=== PATIENT | male | born 1940 | race Caucasian/White ===

== ENCOUNTER → 2018-06-14 | Outpatient (CLI) | payer MEDICARE | END | disposition home or self-care (01) | LOC: PCVCCLINIC 15:05 | PROVIDERS: ATTEND Internal Medicine Cardiovascular Disease | DX: I48.91 Unspecified atrial fibrillation (principal); I11.0 Hypertensive heart disease with heart failure; I50.9 Heart failure, unspecified; E78.5 Hyperlipidemia, unspecified; J44.9 Chronic obstructive pulmonary disease, unspecified; G47.33 Obstructive sleep apnea (adult) (pediatric); I10 Essential (primary) hypertension; R60.9 Edema, unspecified; R06.02 Shortness of breath; Z79.899 Other long term (current) drug therapy | CPT/HCPCS: 36415; 80061; 93005; G0463 ==

== ENCOUNTER → 2018-06-20 | Outpatient (CLI) | payer MEDICARE ==
[~2018-06-20] MED LIST: REGADENOSON 0.4 MG/5 ML DISP.SYRIN. IV ONE
--- NOTE | 2018-06-21 10:36 | PCVCIMAG ---
APPROVED REPORT Study performed: 06/20/2018 07:57:24 EXAM: Comprehensive 2D, Doppler, and color-flow Echocardiogram Patient Location: Echo lab Status: routine BSA: 2.29 Rhythm: Atrial Fibrillation Other Information Study Quality: Adequate Risk Factors: Cardiac Risk Factors: HTN, Hyperlipidemia Indications Atrial Fibrillation Hypertension/HDD COPD, RYAN, Hyperlipidemia 2D Dimensions IVSd: 15.73 (7-11mm)LVOT Diam: 21.71 (18-24mm) LVDd: 46.51 mm PWd: 11.78 (7-11mm)Ascending Ao: 36.79 (22-36mm) LVDs: 32.06 (25-40mm) Left Atrium: 43.87 (27-40mm) Aortic Root: 30.64 mm LV Single Plane 4CH: 55.34 % LV Single Plane 2CH: 49.75 % Biplane EF: 50.4 % Volumes Left Atrial Volume (Systole) Single Plane 4CH: 101.69 mLSingle Plane 2CH: 89.52 mL LA ESV Index: 44.00 mL/m2 Aortic Valve AoV Peak Vadim.: 1.68 m/s AO Peak Gr.: 11.29 mmHgLVOT Max P.17 mmHg LVOT Max V: 0.87 m/s [place] Vmax: 1.91 cm2 AI Vmax: 3.59 m/s AI [place]: 1.83 m/s2 AI PHT: 577.93 ms Mitral Valve E/A Ratio: 1.0 MV E Max Vadim.: 1.08 m/s MV A Vadim.: 1.11 m/s Pulmonary Valve PV Peak Gr.: 2.21 mmHg Tricuspid Valve TR Peak Vadim.: 3.29 m/s TR Peak Gr.: 43.35 mmHg Left Ventricle The left ventricle is normal size. There is normal LV segmental wall motion. There is normal left ventricular wall thickness. Left ventricular systolic function is normal. The left ventricular ejection fraction is within the normal range. LVEF is 55-60%. This study is not technically sufficient to allow evaluation of the LV diastolic function due to atrial fibrillation. Right Ventricle The right ventricle is normal size. The right ventricular systolic function is normal. Atria Left atrium is moderately dilated. Right atrium is dilated. Aortic Valve The Aortic valve is sclerotic. Trace to mild aortic regurgitation. There is no aortic valvular stenosis. Mitral Valve The mitral valve is normal in structure. Mild mitral regurgitation. No evidence of mitral valve stenosis. Tricuspid Valve The tricuspid valve is normal in structure. Trace to mild tricuspid regurgitation. Pulmonary artery pressure is 51mmHg. Pulmonic Valve The pulmonary valve is normal in structure. There is no pulmonic valvular regurgitation. Great Vessels The aortic root is normal in size. IVC is normal in size and collapses >50% with inspiration. Pericardium There is no pericardial effusion. <Conclusion> The left ventricle is normal size. LVEF is 55-60%. This study is not technically sufficient to allow evaluation of the LV diastolic function due to atrial fibrillation. The right ventricle is normal size. Left atrium is moderately dilated. Right atrium is dilated. The Aortic valve is sclerotic. Trace to mild aortic regurgitation. Mild mitral regurgitation. Trace to mild tricuspid regurgitation. Pulmonary artery pressure is 51mmHg. There is no pericardial effusion.
--- NOTE | 2018-06-21 10:38 | PCVCIMAG ---
APPROVED REPORT Imaging Protocol: Rest Tc-99m/Stress Tc-99m 1 day Study performed: 06/20/2018 09:23:22 Indication: Atrial Fibrillation, Dyspnea, CHF Patient Location: Out-Patient Stress Nurse: Sherron Kimble RN, Anayeli Del Valle RN MD Tech:Anne Akersmiryam [facility] Ht: 5 ft 7 in Wt: 260 lbs BSA: 2.26 m2 HR: 92 bpm BP: 150/76 mmHg BMI: 40.7 Rhythm: Atrial Fibrillation Medical History Medical History: COPD, HTN Medications: Albuterol, Carvedilol, Eliquis, Prilosec, Spiriva Allergies: Diltiazem Cardiac Risk Factors: Age Pretest Chest Pain Characteristics: No chest pain Exercise History: Physically active Meds Held (24 hrs): Carvedilol Resting Data Rest SPECT myocardial perfusion imaging was performed in supine position 45 minutes following the intravenous injection of 14.7 mCi of Tc-99m Sestamibi. Time of rest injection: 0900 Date: 06/20/2018 Administration Route: IV Administration Site: Left AC Pharmacologic Stress Pharmacologic stress test was performed by injecting Regadenoson 0.4 mg IV push over 10-15 seconds immediately followed by the intravenous injection of 46.4 mCi of Tc-99m Sestamibi. Time of stress injection: 1015 Date: 06/20/2018 Administration Route: IV Administration Site: Left AC Gated Stress SPECT was performed 45 minutes after stress injection. The images were gated to evaluate regional wall motion and calculate left ventricular ejection fraction. Stress Test Details Stress Test: Pharmacologic stress testing performed using 0.4 mg of regadenoson per 5 mL given IV over 10 seconds. Reason for pharmacologic stress test: supplemental oxygen use, COPD. HRMax Heart Rate (APMHR): 144 bpm Resting HR: 92 bpmTarget HR (85% APMHR): 122 bpm Max HR Achieved: 97 bpm % of APMHR: 67 Recovery HR: 81 bpm BP Resting BP: 150/76 mmHg Max BP: 164/76 mmHg Recovery BP: 133/75 mmHg ECG Resting ECG: Atrial Fibrillation Stress ECG: Atrial Fibrillation Arrhythmia: Atrial fibrillation Recovery ECG: Atrial Fibrillation Clinical Reason for Termination: Completed protocol Stress Symptoms: Dyspnea, Chest pain Exercise duration: 0 min 55 sec Symptoms resolved with caffeine. Stress ECG Conclusion ECG: Non-ischemic Study Quality Study: Good Study Data Post stress, the left ventricular ejection was 56%.. SSS: 2 SRS: 1 SDS: 1 TID = 0.85. Perfusion No evidence of stress induced ischemia or prior myocardial infarction. Wall Motion Normal left ventricular size and function with no regional wall motion abnormalities. Nuclear Conclusion No evidence of stress induced ischemia or prior myocardial infarction. Normal left ventricular size and function with no regional wall motion abnormalities. Post stress, the left ventricular ejection was 56%. No prior study available for comparison. Interpreted by: Hermes Dias MD Electronically Approved: 06/20/2018 15:32:33 <Conclusion> ECG: Non-ischemic
== END | disposition home or self-care (01) ==
LOC: PCVCIMAG 07:20
PROVIDERS: ATTEND Internal Medicine Cardiovascular Disease
DX: I34.0 Nonrheumatic mitral (valve) insufficiency (principal); I48.91 Unspecified atrial fibrillation; I11.0 Hypertensive heart disease with heart failure; I50.9 Heart failure, unspecified; R06.02 Shortness of breath; J44.9 Chronic obstructive pulmonary disease, unspecified; G47.33 Obstructive sleep apnea (adult) (pediatric); E78.5 Hyperlipidemia, unspecified
CPT/HCPCS: 78452; 93017; 93306; A9500; J2785